=== PATIENT | male | born 1980 ===

== ENCOUNTER 2021-08-06 21:54 | Emergency (ER) | payer SELFPAY ==
[2021-08-07 15:13] LABS: SARS-CoV-2 PCR by NAA Not Detected (NotDetected)
== END 2021-08-06 22:36 | disposition home or self-care (01) ==
LOC: ERS 21:54
DX: Z20.822 Contact with and (suspected) exposure to COVID-19 (principal)
CPT/HCPCS: 99283; U0003; U0005